=== PATIENT | female | born 1970 | race American Indian/Alaskan Native ===

== ENCOUNTER 2021-07-07 11:21 | Emergency (ER) | payer SELFPAY ==
[2021-07-07] MEDS ORDERED: cloNIDine 0.1 MG TAB PO ONE (11:49)
--- NOTE | 2021-07-07 11:49 | Event Note ---
ED Screening Note ED Screening Note: Patient is a 51-year-old female presents emergency room complaints of right- sided weakness and numbness that began 3 days ago She also has a headache, photosensitivity, tinnitus in the right ear She denies any speech disturbance, vision changes Past medical history of hypertension and has not taken her blood pressure medication in several years Allergy to penicillin Cranial nerves II through XII intact, 5 out of 5 muscle strength in the bilateral upper extremities and lower extremities, sensation intact, no facial asymmetry, no pronator drift, no focal neuro deficit Symptoms could represent hypertensive urgency versus complex migraine versus possible CVA/TIA This initial assessment/diagnostic orders/clinical plan/treatment(s) is/are subject to change based on patients health status, clinical progression and re- assessment by fellow clinical providers in the ED. Further treatment and workup at subsequent clinical providers discretion. Patient/guardian urged not to elope from the ED as their condition may be serious if not clinically assessed and managed. Initial orders include: Labs, CT head, EKG
[2021-07-07 12:41] LABS: INR 0.96 (0.87-1.13); Partial Thromboplastin Time 30.5 Sec. (24.2-36.6)
[2021-07-07 12:49] LABS: Basophils # (Auto) 0.1 K/mm3 (0.0-0.1); Eosinophils # (Auto) 0.2 K/mm3 (0.0-0.4); Eosinophils % (Auto) 4.4 % (0.0-4.3); Hematocrit 44.1 % (30.3-42.9); Hemoglobin 14.9 gm/dl (10.1-14.3); Lymphocytes # (Auto) 1.6 K/mm3 (1.2-5.4); Lymphocytes % (Auto) 28.8 % (13.4-35.0); Mean Corpuscular HGB Conc 34 % (30-34); Mean Corpuscular Volume 91 fl (79-97); Monocytes # (Auto) 0.3 K/mm3 (0.0-0.8); Red Blood Count 4.86 M/mm3 (3.65-5.03); Red Cell Distribution Width 13.8 % (13.2-15.2)
[2021-07-07 13:00] LABS: Alanine Aminotransferase 11 units/L (7-56); BUN/Creatinine Ratio 27; Blood Urea Nitrogen 24 mg/dL (7-17); Calcium 9.2 mg/dL (8.4-10.2); Hemolysis Index 9
--- NOTE | 2021-07-07 13:20 | Emergency Department Report ---
HPI - General Chief Complaint: Neuro Symptoms/Deficit Time Seen by Provider: 07/07/21 11:47 - HPI HPI: MSE 3 The patient is a 51-year-old female present with a chief complaint of right- sided numbness. The patient states she awakened 2 mornings ago with numbness and tingling on her right upper extremity, right trunk and right lower extremity. Patient states she also hears a roaring sound in her right ear. Patient denied ever having dysarthria or dysphagia. Patient missed a headache for the past 2 days. Patient admits to an episode of nausea vomiting. Patient states she feels weaker on her right side. Patient states she has not had any of her blood pressure medication for the past 8 months. The patient states her presenting symptoms have been getting worse over the past 2 days. ED Past Medical Hx - Past Medical History Hx Hypertension: Yes Additional medical history: Irritable bowel syndrome - Surgical History Past Surgical History?: No - Family History Family history: no significant - Social History Smoking Status: Current Every Day Smoker (1/2 pack/day) Substance Use Type: None (Denies illicit drug use) - Medications Home Medications: Home Medications Medication Instructions Recorded Confirmed Last Taken Type Promethazine [Phenergan] 25 mg PO Q8HR PRN 07/07/21 07/07/21 Unknown History hydroCHLOROthiazide [HCTZ] 25 mg PO QDAY 07/07/21 07/07/21 Unknown History lisinopriL [Lisinopril] 10 mg PO BID 07/07/21 07/07/21 Unknown History ED Review of Systems ROS: Stated complaint: POSSIBLE STROKE Other details as noted in HPI Constitutional: denies: fever Eyes: denies: eye pain ENT: as per HPI Respiratory: no symptoms reported Cardiovascular: denies: chest pain Endocrine: no symptoms reported Gastrointestinal: nausea, vomiting Genitourinary: denies: dysuria Musculoskeletal: denies: back pain Neurological: headache, weakness, paresthesias Physical Exam - Physical Exam Vital Signs: Vital Signs 07/07/21 11:40 Temperature 98.2 F Pulse Rate 83 Respiratory 22 Rate Blood Pressure 191/136 [Left] O2 Sat by Pulse 99 Oximetry Physical Exam: GENERAL: The patient is well-developed well-nourished female lying on stretcher not appearing to be in acute distress. [] HEENT: Normocephalic. Atraumatic. Extraocular motions are intact. Patient has moist mucous membranes. NECK: Supple. Trachea midline CHEST/LUNGS: Clear to auscultation. There is no respiratory distress noted. HEART/CARDIOVASCULAR: Regular. There is no tachycardia. There is no gallop rub or murmur. ABDOMEN: Abdomen is soft, nontender. Patient has normal bowel sounds. There is no abdominal distention. SKIN: There is no rash. There is no edema. There is no diaphoresis. NEURO: The patient is awake, alert, and oriented. The patient is cooperative. The patient has no focal neurologic deficits. The patient has normal speech. Cranial nerves II through XII grossly intact. Patient is able to hold either upper extremity at 45 degree angle for full 5-second count without drift. Patient is able to hold either lower extremity at 30 degree angle for full 5- second count without drift. Decreased sensation to light touch to the right ear, right upper extremity and right lower extremity when compared with the left. NIHSS=1 MUSCULOSKELETAL: There is no evidence of acute injury. ED Course Vital Signs 07/07/21 11:40 Temperature 98.2 F Pulse Rate 83 Respiratory 22 Rate Blood Pressure 191/136 [Left] O2 Sat by Pulse 99 Oximetry - Consultations Consultation #1: 07/07/21 14:02 Neurosurgery paged 07/07/21 14:12 Case discussed with and images of CT sent to neurosurgeon Dr. Henderson- recommends transfer patient. Recommend CTA brain Consultation #2: 07/07/21 14:15 [facility] transfer line called 07/07/21 14:35 Case discussed with [facility] neuro jewellery designer Dr. Zuniga-will accept patient in transfer pending bed availability. No beds available at this time. Recommends Cardene drip to keep systolic blood pressure less than 160. No Keppra necessary at this time. 07/07/21 17:45 [facility] has a ICU bed available and EMS is here to transport patient ED Medical Decision Making - Lab Data Result diagrams: 07/07/21 12:03 07/07/21 12:03 Laboratory Tests 07/07/21 07/07/21 07/07/21 11:45 12:03 12:03 WBC 5.6 RBC 4.86 Hgb 14.9 H Hct 44.1 H MCV 91 MCH 31 MCHC 34 RDW 13.8 Plt Count 248 Lymph % (Auto) 28.8 Sully % (Auto) 6.0 Eos % (Auto) 4.4 H Baso % (Auto) Stakes Player Lymph # (Auto) 1.6 Sully # (Auto) 0.3 Eos # (Auto) 0.2 Baso # (Auto) 0.1 Seg Neutrophils % 58.4 Seg Neutrophils # 3.3 PT 13.4 INR 0.96 APTT 30.5 Sodium Potassium Chloride Carbon Dioxide Anion Gap BUN Creatinine Estimated GFR BUN/Creatinine Ratio Glucose POC Glucose 111 H Calcium Total Bilirubin AST ALT Alkaline Phosphatase Troponin T Total Protein Albumin Albumin/Globulin Ratio 07/07/21 12:03 WBC RBC Hgb Hct MCV MCH MCHC RDW Plt Count Lymph % (Auto) Sully % (Auto) Eos % (Auto) Baso % (Auto) Lymph # (Auto) Sully # (Auto) Eos # (Auto) Baso # (Auto) Seg Neutrophils % Seg Neutrophils # PT INR APTT Sodium 138 Potassium 2.9 L* Chloride 100.5 Carbon Dioxide 27 Anion Gap 13 BUN 24 H Creatinine 0.9 Estimated GFR > 60 BUN/Creatinine Ratio 27 Glucose 126 H POC Glucose Calcium 9.2 Total Bilirubin 0.40 AST 13 ALT 11 Alkaline Phosphatase 89 Troponin T < 0.010 Total Protein 7.3 Albumin 4.0 Albumin/Globulin Ratio 1.2 - EKG Data -: EKG Interpreted by Ny EKG shows normal: sinus rhythm, axis, QRS complexes Rate: normal (68 bpm) - EKG Data When compared to previous EKG there are: previous EKG unavailable Interpretation: nonspecific ST-T wave chandler (T wave inversions in leads V4, V5, V6), LVH - Radiology Data Radiology results: report reviewed (CT head, CTA head), image reviewed (CT head, CTA head) [place] [address] Cat Scan Report Signed Patient: TRACEY WILLAMS MR#: [id number] : 1970 Acct:[id number] Age/Sex: 51 / F ADM Date: 07/07/21 Loc: ED Attending Dr: Ordering Physician: CAMERON OROZCO Date of Service: 07/07/21 Procedure(s): CT head/brain wo con Accession Number(s): [id number] cc: CAMERON OROZCO CT head/brain no calvarial abnormality of significance. Con INDICATION / CLINICAL INFORMATION: right sided weakness and numbness, AGUILERA, tinnitis. TECHNIQUE: Axial CT imaging of brain was obtained without contrast. Coronal and sagittal reformatted imaging obtained and reviewed. All CT scans at this location are performed using CT dose reduction for ALARA by means of automated exposure control. COMPARISON: None available. FINDINGS: There is focal intraparenchymal hemorrhage within the marion. The hemorrhage measures approximately 17 x 12 mm and is located in the central to left side of the marion. No additional site of h emorrhage or mass. No extra-axial fluid collection or suggestion of acute territorial infarction. The ventricular system and basilar cisterns are unremarkable. Visualized paranasal sinuses and mastoid air cells are well aerated and clear. No calvarial abnormality of significance. IMPRESSION: 1. Intr acranial hemorrhage is present. There is focal hemorrhage within the marion measuring approximately 17 x 12 mm. CRITICAL RESULT: Time of Discovery: 1250 hours FAN RUNNER Time of Communication: 1257 hours FAN RUNNER Licensed Practitioner Receiving Report: Lisa Moffett Read Back Performed: Yes. Signer Name: Anisa Larsen MD Signed: 07/07/2021 1:58 PM Workstation Name: [id number] Transcribed By: JR Dictated By: Anisa Larsen MD Electronically Authenticated By: Anisa Larsen MD Signed Date/Time: 07/07/21 1358 DD/ 1345 TD/TT: Print Cancel [facility] [address] [place] [address] Cat Scan Report Signed Patient: TRACEY WILLAMS MR#: [id number] : 1970 Acct:[id number] Age/Sex: 51 / F ADM Date: 07/07/21 Loc: ED Attending Dr: Ordering Physician: LAVERNE RAINES MD Date of Service: 07/07/21 Procedure(s): CT angio head Accession Number(s): [id number] cc: LAVERNE RAINES MD CT angio head INDICATION / CLINICAL INFORMATION: 51 years Female; Marion hemorrhage, hypertensive, right-sided paresth. TECHNIQUE: Thin cut axial images obtained through the head during IV bolus contrast administration. Sagittal, coronal, and 3 plane MIP reconstructions performed by the technologist. NASCET type criteria used evaluate stenoses. Automated exposure control utilized for radiation reduction purposes. COMPARISON: The study is compared to the earlier CT head of 07/07/2021. FINDINGS: INTERNAL CAROTID ARTERIES: The distal internal carotid arteries demonstrate appropriate caliber without significant focal stenosis by NASCET criteria. VERTEBROBASILAR SYSTEM: On the earlier CT brain, there was note of a 1.6 cm focus of hemorrhage projected along the posterior right marion. There is developmental tortuosity of the vertebral basilar system which courses along the lateral margin of the hemorrhage and marion on the left at. However, there is no clear CTA evidence of aneurysm within this region. The vertebral basilar system demonstrate appropriate caliber without significant focal stenosis. CEREBRAL ARTERIES: The proximal cerebral arteries and adjacent segments also demonstrate appropriate caliber without significant focal narrowing. ANEURYSM: None identified. ADDITIONAL FINDINGS: Remainder of the surrounding soft tissues are grossly normal. IMPRESSION: The findings correlate with the earlier CT demonstrating acute hemorrhage projected within the posterior marion lateralizes toward the left. There is developmental tortuosity of the vertebral basilar system which courses along the lateral margin of the left marion at this level. However, there is no CTA evidence of intracranial aneurysm and the hemorrhage appears to be intraparenchymal and possibly related to hypertension or infarct; correlation would be needed. There is no significant focal stenosis involving visualized intracranial vessels. Signer Name: Harshil Abdalla MD Signed: 07/07/2021 4:52 PM Workstation Name: [id number] Transcribed By: MR Dictated By: Harshil Abdalla MD Electronically Authenticated By: Harshil Abdalla MD Signed Date/Time: 07/07/211651 DD/ 42 TD/TT: Print Cancel - Differential Diagnosis CVA, hypertensive urgency, complex migraine Critical care attestation.: If time is entered above; I have spent that time in minutes in the direct care of this critically ill patient, excluding procedure time. ED Disposition Clinical Impression: Intracranial hemorrhage, Hypertensive emergency Disposition: 51 HOSPICE/MEDICAL FACILITY Is pt being admited?: No Does the pt Need Aspirin: No Condition: Serious Instructions: Hypertension (ED) Referrals: PRIMARY CARE, [Primary Care Provider] - 3-5 Days Time of Disposition: 17:48 (Patient being transported by EMS)
[2021-07-07] MEDS ORDERED: POTASSIUM CHLORIDE ER 20 MEQ TAB PO ONE ×2 (13:27→15:00)
[2021-07-07 13:52] LABS: Platelet Count 248 K/mm3 (140-440)
--- NOTE | 2021-07-07 14:03 | Cat Scan Report ---
CT head/brain no calvarial abnormality of significance. Con INDICATION / CLINICAL INFORMATION: right sided weakness and numbness, AGUILERA, tinnitis. TECHNIQUE: Axial CT imaging of brain was obtained without contrast. Coronal and sagittal reformatted imaging obt ained and reviewed. All CT scans at this location are performed using CT dose reduction for ALARA by means of automated exposure control. COMPARISON: None available. FINDINGS: There is focal intraparenchymal hemorrhage within the marion. The hemorrhage measures approximately 17 x 12 mm and is located in the central to left side of the marion. No additional site of hemorrhage or mass. No extra-axial fluid collection or suggestion of acute terr itorial infarction. The ventricular system and basilar cisterns are unremarkable. Visualized paranasal sinuses and mastoid air cells are well aerated and clear. No calvarial abnormali ty of significance. IMPRESSION: 1. Intracranial hemorrhage is present. There is focal hemorrhage within the marion measuring approximat john 17 x 12 mm. CRITICAL RESULT: Time of Discovery: 1250 hours BUYER ASSISTANT Time of Communication: 1257 hours BUYER ASSISTANT Licensed Practitioner Receiving Report: Lisa Moffett Read Back Performed: Yes. Signer Name: Anisa Larsen MD Signed: 07/07/2021 1:58 PM Workstation Name: [id number]
[2021-07-07] MEDS: niCARdipine DRIP 40 MG/200 ML BAG IV ONE ×2 (14:58→15:33)
[2021-07-07] MEDS ORDERED: ONDANSETRON 4 MG/2 ML INJ IV ONE (16:38)
[2021-07-07] MEDS ORDERED: fentaNYL 100 MCG/2 ML INJ IV ONE (16:38)
[2021-07-07] MEDS ORDERED: ONDANSETRON 4 MG/2 ML INJ ONE (16:39)
--- NOTE | 2021-07-07 16:57 | Cat Scan Report ---
CT angio head INDICATION / CLINICAL INFORMATION: 51 years Female; Liliane hemorrhage, hypertensive, right-sided paresth. TECHNIQUE: Thin cut axial images obtained through the head during IV bolus contrast administration. S agittal, coronal, and 3 plane MIP reconstructions performed by the technologist. NASCET type criteria used evaluate stenoses. Automated exposure control utilized for radiation reduction purposes. COMPARISON: The study is compared to the earlier CT head of 07/07/2021. FINDINGS: INTERNAL CAROTID ARTERIES: The distal internal carotid arteries demonstrate appropriate caliber witho ut significant focal stenosis by NASCET criteria. VERTEBROBASILAR SYSTEM: On the earlier CT brain, there was note of a 1.6 cm focus of hemorrhage proje cted along the posterior right liliane. There is developmental tortuosity of the vertebral basilar syste m which courses along the lateral margin of the hemorrhage and liliane on the left at. However, there is no clear CTA evidence of aneurysm within this region. The vertebral basilar system demonstrate appro priate caliber without significant focal stenosis. CEREBRAL ARTERIES: The proximal cerebral arteries and adjacent segments also demonstrate appropriate caliber without significant focal narrowing. ANEURYSM: None identified. ADDITIONAL FINDINGS: Remainder of the surrounding soft tissues are grossly normal. IMPRESSION: The findings correlate with the earlier CT demonstrating acute hemorrhage projected within the clinical operations leader ior liliane lateralizes toward the left. There is developmental tortuosity of the vertebral basilar syst em which courses along the lateral margin of the left liliane at this level. However, there is no CTA ev idence of intracranial aneurysm and the hemorrhage appears to be intraparenchymal and possibly relate d to hypertension or infarct; correlation would be needed. There is no significant focal stenosis involving visualized intracranial vessels. Signer Name: Harshil Abdalla MD Signed: 07/07/2021 4:52 PM Workstation Name: [id number]
[2021-07-07 18:16] VITALS: BP 137/86
--- NOTE | 2021-07-09 09:44 | Electrocardiograph Report ---
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
--- NOTE | 2021-07-09 09:44 | Electrocardiograph Report ---
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
== END 2021-07-07 18:16 | disposition hospice, inpatient (51) ==
LOC: ED 11:21
DX: I62.9 Nontraumatic intracranial hemorrhage, unspecified (principal); I16.1 Hypertensive emergency; I10 Essential (primary) hypertension; F17.200 Nicotine dependence, unspecified, uncomplicated; Z79.899 Other long term (current) drug therapy
CPT/HCPCS: 36415; 70450; 70496; 80053; 82962; 84484; 85025; 85610; 85730; 93005; 96365; 96366; 96375; 99284; J2405; J3010; Q9967